=== PATIENT | female | born 2000 | race Caucasian/White ===

== ENCOUNTER 2020-02-18 06:00 | Inpatient (IN) ==
[2020-02-18] MEDS ORDERED: Lidocaine 1% 20 ML MDV INFILT PRN (06:04)
[2020-02-18] MEDS ORDERED: Metoclopramide 10 MG/2 ML VIAL IVP PRN (06:04)
[2020-02-18] MEDS ORDERED: Naloxone 0.4 MG/ML INJ IVP PRN ×2 (06:04→12:35)
[2020-02-18] MEDS ORDERED: Azithromycin 500 MG in 0.9 % Sodium Chloride 250 ML IVPB ONE (06:04)
[2020-02-18] MEDS ORDERED: Ondansetron 4 MG/2 ML VIAL IVP PRN ×2 (06:04→12:35)
[2020-02-18] MEDS ORDERED: *HR* FentaNYL (PF) 100 MCG/2 ML VIAL IVP PRN (06:04)
[2020-02-18] MEDS ORDERED: miSOPROStoL 25 MCG TABLET VG PRN (06:04)
[2020-02-18] MEDS ORDERED: Famotidine 20 MG/2 ML VIAL IVP PRN (06:04)
[2020-02-18] MEDS ORDERED: Ringers Solution, Lactated 1,000 ML IVC SCH (06:15)
[2020-02-18] MEDS ORDERED: FLU Vac QV 20-21 (6Month+)/PF 0.5 ML SYRINGE IM ONE (06:22)
[2020-02-18 06:41] LABS: Basophils % 0.4 %; Eosinophils # 0.1 K/mcL (0.0-0.6); Eosinophils % 0.7 %; Hematocrit 35.6 % (35.3-44.9); Immature Granulocytes % 0.5 % (0-4); Lymphocytes # 1.7 K/mcL (0.6-4.6); Lymphocytes % 19.8 %; Mean Corpuscular HGB Conc 33.7 g/dL (31.6-35.5); Mean Corpuscular Hemoglobin 29.9 pg (28.0-33.3); Mean Corpuscular Volume 88.6 fL (83.0-100.0); Mean Platelet Volume 12.4 fL (9.4-12.4); Monocytes # 0.4 K/mcL (0.0-1.3); Monocytes % 5.3 %; Neutrophils # 6.1 K/mcL (1.6-8.9); Platelet Count 182 K/mcL (140-400); Red Blood Count 4.02 M/mcL (3.82-4.97); Red Cell Distribution Width 12.1 % (11.5-14.5); Segmented Neutrophils % 73.3 %; White Blood Count 8.4 K/mcL (4.3-11.1)
[2020-02-18 10:54] LABS: Amphetamine Screen,Urine Negative ng/mL (Cutoff=1000); Barbiturate Screen,Urine Negative ng/mL (Cutoff=200); Benzodiazepines Screen,Urine Negative ng/mL (Cutoff=200); Cannabinoid Screen,Urine Negative ng/mL (Cutoff = 50); Cocaine Screen,Urine Negative ng/mL (Cutoff= 300); Opiate Screen,Urine Negative ng/mL (Cutoff=300); Phencyclidine Screen,Urine Negative ng/mL (Cutoff=25)
[2020-02-18] MEDS ORDERED: *HR* FentaNYL (PF) 100 MCG/2 ML VIAL EP ONE (12:35)
[2020-02-18] MEDS ORDERED: Ropivacaine/PF 0.2% 20 ML VIAL EP ONE (12:35)
[2020-02-18] MEDS ORDERED: EPHEDrine 50 MG/ML VIAL IVP PRN (12:35)
[2020-02-18] MEDS ORDERED: Oxytocin 20 units/ LR 1000 mL 20 UNIT/1,000 ML BAG IVC SCH ×2 (12:45→21:12)
[2020-02-18] MEDS ORDERED: Epidural Premix (fent/bupiv) 110 ML EP SCH (12:45)
[2020-02-18] MEDS ORDERED: Ropivacaine/PF 0.2% 20 ML VIAL ONE (13:48)
[2020-02-18] MEDS ORDERED: Ibuprofen 600 MG TABLET PO PRN (21:12)
[2020-02-18] MEDS ORDERED: Benzocaine/Menthol 56 GM AEROSOL SPRAY TP PRN (21:12)
[2020-02-18] MEDS ORDERED: Lanolin 7 G OINT...G. TP PRN (21:12)
[2020-02-18] MEDS ORDERED: Acetaminophen 325 MG TABLET PO PRN (21:12)
[2020-02-18] MEDS ORDERED: *HR* HYDROcodone/Acet 5/325 mg TABLET PO PRN (21:12)
[2020-02-19 06:37] LABS: Basophils % 0.3 %; Eosinophils % 0.3 %; Hematocrit 32.5 % (35.3-44.9); Hemoglobin 10.8 g/dL (11.5-15.4); Immature Granulocytes % 0.4 % (0-4); Lymphocytes # 1.6 K/mcL (0.6-4.6); Lymphocytes % 12.9 %; Mean Corpuscular HGB Conc 33.2 g/dL (31.6-35.5); Mean Corpuscular Hemoglobin 29.3 pg (28.0-33.3); Mean Corpuscular Volume 88.3 fL (83.0-100.0); Mean Platelet Volume 12.4 fL (9.4-12.4); Monocytes # 0.7 K/mcL (0.0-1.3); Monocytes % 5.9 %; Neutrophils # 10.1 K/mcL (1.6-8.9); Platelet Count 165 K/mcL (140-400); Red Blood Count 3.68 M/mcL (3.82-4.97); Red Cell Distribution Width 12.2 % (11.5-14.5); Segmented Neutrophils % 80.2 %
[2020-02-19 06:39] LABS: White Blood Count 12.6 K/mcL (4.3-11.1)
[2020-02-19] MEDS ORDERED: Prenatal Vit/FA 1 EACH TABLET PO SCH (09:00)
[2020-02-19] MEDS ORDERED: NON-FORMULARY MEDICATION 1 EACH EACH (Pnv115/Iron Fumarate/Fa/Dss [Prenatal 19 Tablet] 1 M PO SCH (09:00)
[2020-02-19] MEDS ORDERED: FLU Vac QV 20-21 (6Month+)/PF 0.5 ML SYRINGE IM ONE (14:34)
[2020-02-19 15:56] VITALS: BP 114/69
== END 2020-02-19 20:23 | disposition home or self-care (01) | DRG 807 ==
LOC: 1NENULAB 06:02 → 1NENUOBS 21:27
PROVIDERS: ADMIT Obstetrics & Gynecology; ATTEND Obstetrics & Gynecology